=== PATIENT | male | born 2000 | race Caucasian/White ===

== ENCOUNTER 2020-08-27 18:40 | Emergency (ER) | payer MEDICAID ==
[~2020-08-27] VITALS: Ht 170.2 cm; Wt 99.8 kg
[2020-08-27 18:52] VITALS: BP 139/77
[2020-08-27] MEDS ORDERED: ALBUTEROL SULFATE/IPRATROPIU 3 ML SOL IH ONE (19:05)
--- NOTE | 2020-08-27 19:10 | NUR ---
20 Y/O M BIB SELF D/T SOB. PT TOOK HIS INHALER BUT IT WASNT HELPING. PT WITH KNOWN HX OF ASTHMA. PT CURRENTLY ON ROOM AIR SAT AT 98%. PT WITH SOME WHEEZING. PT PLACED PT DENIES ANY ALLERGY. PT PLACED ON HIGH LEWIS POSITION AND HOOKED ON MONITOR.
--- NOTE | 2020-08-27 19:11 | NUR ---
RT AT BEDSIDE GIVING TREATMENT.
--- NOTE | 2020-08-27 20:36 | NUR ---
PT DECLINES COVID SWAB. AWARE.
[2020-08-27 20:38] VITALS: BP 139/77
--- NOTE | 2020-08-27 20:38 | NUR ---
Patient discharged with v/s stable. Written and verbal after care instructions given and explained. Patient alert, oriented and verbalized understanding of instructions. Ambulatory with steady gait. All questions addressed prior to discharge. ID band removed. Patient advised to follow up with PMD. Rx of ALBUTEROL INHALER AND ALBUTEROL NEBULE given. Patient educated on indication of medication including possible reaction and side effects. Opportunity to ask questions provided and answered.
== END 2020-08-27 20:38 | disposition home or self-care (01) ==
LOC: MED 18:40
DX: J45.901 Unspecified asthma with (acute) exacerbation (principal); Z20.828 Contact with and (suspected) exposure to other viral communicable diseases
CPT/HCPCS: 94640; 99283; 99284